=== PATIENT | female | born 1955 | race Caucasian/White ===

== ENCOUNTER 2017-09-23 20:00 | Emergency (ER) | payer SELFPAY ==
[2017-09-23 20:12] VITALS: BP 184/96
--- NOTE | 2017-09-23 20:18 | ED Physician Documentation ---
PD HPI Fall - Stated complaint Stated Complaint: GLF - RIB/BACK PX - Chief complaint Chief Complaint: Back Pain - History of Present Illness Mechanism of injury: Slipped Fall distance: Standing position Where injury occurred: Street Timing - onset: Today Injury(ies) location: Back Quality of pain: Pain Associated symptoms: No: LOC, AMS Worsens with: Movement, Palpation Recently seen: Not recently seen - Additional information Additional information: Patient is a 62 year old female presenting to the emergency department for back pain after falling. patient [place] she was going through the turnstile she slipped and she hit her back on the turnstile. Review of Systems Ten Systems: 10 systems reviewed and negative Musculoskeletal: reports: Back pain PD PAST MEDICAL HISTORY - Past Medical History Endocrine/Autoimmune: HyPOthyroidism - Past Surgical History Ortho: Other - Present Medications Home Medications: Ambulatory Orders Medication Instructions Recorded Confirmed oxyCODONE/ACET 5/325 [Percocet 5 1 each PO Q4-6H PRN #15 tablet 05/24/ mg/325 mg] Ibuprofen [Motrin] 400 mg PO Q6H PRN #20 tablet 12/20/15 Lidocaine Patch 5% [Lidoderm Patch] 1 each TOP DAILY PRN #10 patch 12/20/15 Oxycodone HCl/Acetaminophen 1 each PO Q6HR PRN #15 tablet 12/20/15 [Percocet 5-325 mg Tablet] Lidocaine Patch 5% [Lidoderm Patch] 1 each TOP DAILY #14 patch 09/23/17 Oxycodone HCl/Acetaminophen 1 - 2 each PO Q6H PRN #14 tablet 09/23/17 [Percocet 5-325 mg Tablet] - Allergies Allergies/Adverse Reactions: Allergies Allergy/AdvReac Type Severity Reaction Status Date / Time epinephrine Allergy Unknown Verified 09/23/17 20:12 Sulfa (Sulfonamide Allergy Rash Verified 09/23/17 20:12 Antibiotics) - Social History Does the pt smoke?: No Smoking Status: Never smoker PD ED PE NORMAL - Vitals Vital signs reviewed: Yes - General General: Alert and oriented X 3 - HEENT HEENT: Atraumatic - Neck Neck: Supple, no meningeal sign - Cardiac Cardiac: RRR - Respiratory Respiratory: Clear bilaterally - Abdomen Abdomen: Soft, Non distended - Extremities Extremities: No deformity - Neuro Neuro: Alert and oriented X 3 Eye Opening: Spontaneous PD ED PE EXPANDED - General General: Alert, In Pain - Back Back: Vertebral tenderness, Soft tissue tenderness (tenderness to palpation and erythema over right ribs) Results - Vitals Vitals: Vital Signs - 24 hr 09/23/17 20:09 Temperature 36.7 C Heart Rate 103 H Respiratory 19 Rate Blood Pressure 184/96 H O2 Saturation 96 Oxygen O2 Source Room air PD MEDICAL DECISION MAKING - ED course Complexity details: reviewed old records, reviewed results, re-evaluated patient , considered differential, d/w patient ED course: Patient was seen and examined at bedside. Patient was sent for imaging. when patient returned the results were reviewed. Patient was found to have a fractured rib. patient was treated with toradol and a lidoderm patch. patient required no further work up at this time and was stable for discharge with outpatient follow up. - Sepsis Event Vital Signs: Vital Signs - 24 hr 09/23/17 20:09 Temperature 36.7 C Heart Rate 103 H Respiratory 19 Rate Blood Pressure 184/96 H O2 Saturation 96 Oxygen O2 Source Room air Departure - Departure Disposition: 01 Home, Self Care Clinical Impression: Rib fracture Condition: Good Instructions: ED Fx Rib Follow-Up: primary,care provider [Other] Prescriptions: Lidocaine Patch 5% [Lidoderm Patch] 1 each TOP DAILY #14 patch Oxycodone HCl/Acetaminophen [Percocet 5-325 mg Tablet] 1 - 2 each PO Q6H PRN # 14 tablet PRN Reason: pain Comments: Your symptoms today are being caused by a rib fracture. it can take 4-6 weeks to heal. it is important that you take deep breaths throughout the day. You should ice the area at least 4 times a day. You can take motrin or tylenol as needed for pain and percocet for breakthrough pain. You should return to the emergency department for fevers, chills, new worsening or uncontrollable symptoms. Forms: Activity restrictions
--- NOTE | 2017-09-23 21:01 | XRAY Report ---
Procedure Date: 09/23/2017 Accession Number: [id number] / [id number] Procedure: XR - Ribs w/PA Chest RT CPT Code: FULL RESULT: EXAM: RIGHT RIB RADIOGRAPHY EXAM DATE: 09/23/2017 08:35 PM. CLINICAL HISTORY: Fall, pain. COMPARISON: None. TECHNIQUE: 1 view of the chest and 2 views of the ribs. FINDINGS: Bones: Osteopenia. Degenerative changes. Calcific periarthritis of right shoulder. Nondisplaced fracture of posterolateral right third rib. Questionable involvement of anterolateral right sixth rib versus artifact. Lungs: Clear. No effusion or pneumothorax. Mediastinum: Heart and mediastinal contours are unremarkable. Upper lobe vessels are not distended. Other: None. IMPRESSION: At least 1 minimally to nondisplaced right rib fracture. [facility]
[2017-09-23] MEDS ORDERED: KETOROLAC 60 MG/2 ML VIAL IM STA (21:11)
[2017-09-23] MEDS ORDERED: LIDOCAINE PATCH 5% TOP STA (21:11)
[2017-09-23] MEDS ORDERED: oxyCODONE/ACET 5/325 Prepack 4 PO STA (21:12)
== END 2017-09-23 21:25 | disposition home or self-care (01) ==
LOC: ED 20:00
DX: S22.31XA Fracture of one rib, right side, initial encounter for closed fracture (principal); W01.198A Fall on same level from slipping, tripping and stumbling with subsequent striking against other object, initial encounter; Y92.89 Other specified places as the place of occurrence of the external cause; E03.9 Hypothyroidism, unspecified
CPT/HCPCS: 71101; 96372; 99283; A9270

== ENCOUNTER 2021-03-06 15:20 | Outpatient (CLI) | payer MEDICAID | END 2021-03-06 15:21 | disposition EMS.NT | LOC: EMS 15:20 | DX: R60.1 Generalized edema (principal) ==

== ENCOUNTER 2023-07-17 13:07 | Outpatient (CLI) | payer MEDICARE, BC ==
[2023-07-17 14:49] LABS: BASOPHILS # (AUTO) 0.1 10^3/uL (0.0-0.1); BASOPHILS % (AUTO) 1.3 %; EOSINOPHILS # (AUTO) 0.3 10^3/uL (0.0-0.7); EOSINOPHILS % (AUTO) 4.8 %; HCT - HEMATOCRIT 40.3 % (37.0-47.0); HGB - HEMOGLOBIN 12.7 g/dL (12.0-16.0); LYMPHOCYTES # (AUTO) 1.5 10^3/uL (1.5-3.5); LYMPHOCYTES % (AUTO) 25.1 %; MEAN CORPUSCULAR HEMOGLOBIN 29.6 pg (27.0-31.0); MEAN CORPUSCULAR HGB CONC 31.5 g/dL (32.0-36.0); MEAN CORPUSCULAR VOLUME 93.9 fL (81.0-99.0); MEAN PLATELET VOLUME 11.3 fL (7.9-10.8); MONOCYTES # (AUTO) 0.5 10^3/uL (0.0-1.0); NEUTROPHILS # (AUTO) 3.6 10^3/uL (1.5-6.6); NEUTROPHILS % (AUTO) 60.5 %; PLT - PLATELET COUNT 210 10^3/uL (130-450); RED BLOOD COUNT 4.29 10^6/uL (4.20-5.40); RED CELL DISTRIBUTION WIDTH 13.1 % (12.0-15.0)
[2023-07-17 15:41] LABS: ALBUMIN 4.3 g/dL (3.2-5.5); ALBUMIN/GLOBULIN RATIO 1.9 (1.0-2.2); BILIRUBIN,TOTAL 0.4 mg/dL (0.2-1.0); CALCIUM 9.4 mg/dL (8.5-10.3); POTASSIUM 4.1 mmol/L (3.5-4.5); TOTAL PROTEIN 6.6 g/dL (6.4-8.9)
[2023-07-17 16:19] LABS: THYROID STIMULATING HORMONE 2.09 uIU/mL (0.34-5.60)
[2023-07-17 20:48] LABS: ESTIMATED AVERAGE GLUCOSE 120 mg/dL (70-100); HEMOGLOBIN A1c% 5.8 % (4.27-6.07)
== END 2023-07-17 13:08 | disposition home or self-care (01) ==
LOC: LAB.S 13:07
PROVIDERS: ATTEND Midwife
DX: R53.83 Other fatigue (principal); E03.9 Hypothyroidism, unspecified; J45.40 Moderate persistent asthma, uncomplicated
CPT/HCPCS: 36415; 80053; 83036; 84443; 85025